=== PATIENT | female | born 1960 | race Caucasian/White ===

== ENCOUNTER 2018-01-09 23:36 | Emergency (ER) | payer OTHER ==
[~2018-01-09] VITALS: Ht 175.3 cm; Wt 53.5 kg
[~2018-01-09 23:36] MED LIST: ADVAIR HFA 230-12 GM; ASPIRIN81 M4 PO; AZITHROMYCIN500 M3 PO; COMBIGAN EYE DRO5 ML OS; KEPPRA750 M1 PO; LEVOTHYROXINE100 MC1 PO; METOPROLOL SUC100 M2 PO; PREDNISONE10 M2 PO; SPIRIVA RESPIMAT4 GM; TEGRETOL XR200 M1 PO; VASOTEC10 MG PO; VESICARE10 MG PO; VESICARE5 M1 PO; VITAMIN D2000 UNIT PO
--- NOTE | 2018-01-10 00:33 | ED CRITICAL CARE ---
History of Present Illness General Chief Complaint: Chest Pain Stated Complaint: "CHEST PAIN X20 MINS AGO, DIZZINESS" Source: patient, family, old records Exam Limitations: no limitations Vital Signs & Intake/Output Vital Signs & Intake/Output Vital Signs Date Time Temp Pulse Resp B/P B/P Pulse O2 O2 Flow FiO2 Mean Ox Delivery Rate 01/10 0046 93 01/09 2354 97 Room Air 01/09 2343 96.2 66 18 182/72 96 Room Air ED Intake and Output 01/10 0000 01/09 1200 Intake Total Output Total Balance Patient 118 lb Weight Weight Reported by Patient Measurement Method Allergies Coded Allergies: codeine (Intermediate, "LOOPY" 01/09/18) Reconcile Medications Aspirin (Aspirin*) 81 MG TAB.CHEW 1 TAB PO DAILY Heart (Reported) Azithromycin 500 MG TABLET 1 TAB PO DAILY bronchitis Brimonidine Tartrate/Timolol (Combigan Eye Drops) 0.2 %-0.5 % DROPS 1 DROP OS DAILY Eye health (Reported) Carbamazepine (Tegretol XR) 200 MG TAB.ER.12H 1 TAB PO TID SEIZURES (Reported ) Cholecalciferol (Vitamin D3) (Vitamin D) 2,000 UNIT CAPSULE 1 CAP PO DAILY Supplement (Reported) Enalapril Maleate (Vasotec) 10 MG TABLET 1.5 TAB PO DAILY Blood pressure ( Reported) Fluticasone Propionate/Salme (Advair Hfa 230-21 Mcg Inhaler) 230 MCG-21 MCG/ ACTUATION HFA.AER.AD COPD (Reported) Levetiracetam (Keppra) 750 MG TABLET 1 TAB PO BID SEIZURES (Reported) Levothyroxine Sodium 100 MCG TABLET 1 TAB PO DAILY THYROID HEALTH (Reported) Metoprolol Succinate 100 MG TAB.ER.24H 1 TAB PO DAILY HIGH BLOOD PRESSURE ( Reported) Prednisone 10 MG TABLET 1 TAB PO AD TAPER TAKE 4 TABS 11/08- TAKE 3 TABS 11/10-24 TAKE 2 TABS 11/12-26 TAKE 1 TAB 11/15-28 THEN STOP Solifenacin Succinate (Vesicare) 5 MG TABLET 1 TAB PO DAILY Bladder health ( Reported) Tiotropium [place] (Spiriva Respimat) 2.5 MCG/ACTUATION MIST.INHAL COPD ( Reported) Core Measure Meds Pre-Hospital aspirin Triage Note: PT FROM HOME C/O CP IN MIDDLE OF CHEST THAT "CRAWLED" UP THE LEFT SHOULDER/NECK 30 MINS PRIOR TO ARRIVAL. PT STATES "ANEURYSM THAT IS BEING MONITORED IN MY LEFT CHEST" PT STATES INTERMITTENT PAIN THAT DOES NOT RADIATE ANYWHERE FURTHER. PT DENIES N/V/D, BILATERAL ARM NUMBNESS/TINGLING, BACK OR JAW PAIN, OR SOB. Triage Nurses Notes Reviewed? yes Past History Travel History Traveled to [place] past 21 day Yes Medical History Neurological: seizure Cardiovascular: hypertension, MARFANS COPD History of MRSA: No History of VRE: No History of CDIFF: No Tetanus Vaccine: 04/05/12 Surgical History Surgical History: non-contributory Psychosocial History Who do you live with Family Services at Home None What is your primary language Algerian Tobacco Use: Quit >30 days ago Review of Systems Review of Systems Constitutional: Reports: no symptoms. Eyes: Reports: no symptoms. Ears, Nose, Throat, Mouth: Reports: no symptoms. Respiratory: Reports: no symptoms. Gastrointestinal/Abdominal: Reports: no symptoms. Genitourinary: Reports: no symptoms. Musculoskeletal: Reports: no symptoms. Skin: Reports: no symptoms. Neurological/Psychological: Reports: no symptoms. All Other Systems: Reviewed and Negative Progress Plan of Care: Orders Procedure Date/time Status Add-on Test (ER Only) 01/10 0033 Active MAGNESIUM 01/10 0003 Active B-TYPE NATRIURETIC PEP (BNP) 01/10 0003 Active TROPONIN LEVEL 01/10 0001 Active COMPREHENSIVE METABOLIC PANEL 01/10 0001 Active CBC WITHOUT DIFFERENTIAL 01/10 0001 Complete EKG 01/09 2338 Active Laboratory Tests 01/10/18 0003: Sodium Pending, Potassium Pending, Chloride Pending, Carbon Dioxide Pending, Anion Gap Pending, BUN Pending, Creatinine Pending, BUN/Creatinine Ratio Pending , Glucose Pending, Calcium Pending, Magnesium Pending, Total Bilirubin Pending, AST Pending, ALT Pending, Alkaline Phosphatase Pending, Troponin I Pending, Pro- B-Natriuretic Pept Pending, Total Protein Pending, Albumin Pending, Globulin Pending, Albumin/Globulin Ratio Pending, CBC w Diff NO MAN DIFF REQ, RBC 3.70 L , MCV 89.0, MCH 29.6, MCHC 33.3, RDW 13.7, MPV 8.7, Gran % 42.8, Lymphocytes % 32.1, Monocytes % 14.1 H, Eosinophils % 8.9 H, Basophils % 2.1 H, Absolute Granulocytes 3.4, Absolute Lymphocytes 2.6, Absolute Monocytes 1.1 H, Absolute Eosinophils 0.7, Absolute Basophils 0.2 Departure Departure Condition: Stable Referrals: Lambert Davies DO (PCP/Family) Departure Forms: Customer Survey General Discharge Information
[2018-01-10 00:35] LABS: ABSOLUTE BASOPHIL COUNT 0.2 /CUMM (0.0-0.2); ABSOLUTE EOSINOPHIL COUNT 0.7 /CUMM (0.0-0.7); ABSOLUTE GRANULOCYTE CT 3.4 /CUMM (1.4-6.5); ABSOLUTE LYMPH COUNT 2.6 /CUMM (1.2-3.4); ABSOLUTE MONOCYTE COUNT 1.1 /CUMM (0.10-0.60); BASOPHIL % 2.1 % (0.0-2.0); EOSINOPHIL % 8.9 % (0-5); GRANULOCYTE % 42.8 % (42.2-75.2); HEMATOCRIT 32.9 % (37-47); MEAN CORPUSCULAR HGB 29.6 PG (27.0-31.0); MEAN CORPUSCULAR HGB CONC 33.3 G/DL (33.0-37.0); MEAN PLATELET VOLUME 8.7 FL (7.4-10.4); PLATELET COUNT 269 /CUMM (130-400); RBC DISTRIBUTION WIDTH 13.7 % (11.5-14.5)
--- NOTE | 2018-01-10 00:50 | RADIOLOGY REPORT ---
EXAMINATION: XR CHEST CLINICAL INFORMATION: Chest pain and shortness of breath COMPARISON: 11/06/2017 TECHNIQUE: 2 views of the chest were obtained. FINDINGS: The lungs are hyperexpanded. Median sternotomy wires are present. Surgical clips overlie the mediastinum. There is no consolidation or edema. No definite pleural effusion. No pneumothorax. The cardiomediastinal silhouette is unchanged, with a calcified aorta. Mild degenerative changes of the spine. IMPRESSION: Hyperexpanded lungs with no acute findings.
--- NOTE | 2018-01-10 01:08 | ED CARDIAC/CP/PALPITATIONS ---
History of Present Illness General Chief Complaint: Chest Pain Stated Complaint: "CHEST PAIN X20 MINS AGO, DIZZINESS" Source: patient, family, old records Exam Limitations: no limitations Vital Signs & Intake/Output Vital Signs & Intake/Output Vital Signs Date Time Temp Pulse Resp B/P B/P Pulse O2 O2 Flow FiO2 Mean Ox Delivery Rate 01/10 0243 57 20 129/59 95 Room Air 01/10 0046 93 01/09 2354 97 Room Air 01/09 2343 96.2 66 18 182/72 96 Room Air ED Intake and Output 01/10 0000 01/09 1200 Intake Total Output Total Balance Patient 118 lb Weight Weight Reported by Patient Measurement Method Allergies Coded Allergies: codeine (Intermediate, "LOOPY" 01/09/18) Reconcile Medications Aspirin (Aspirin*) 81 MG TAB.CHEW 1 TAB PO DAILY Heart (Reported) Azithromycin 500 MG TABLET 1 TAB PO DAILY bronchitis Brimonidine Tartrate/Timolol (Combigan Eye Drops) 0.2 %-0.5 % DROPS 1 DROP OS DAILY Eye health (Reported) Carbamazepine (Tegretol XR) 200 MG TAB.ER.12H 1 TAB PO TID SEIZURES (Reported ) Cholecalciferol (Vitamin D3) (Vitamin D) 2,000 UNIT CAPSULE 1 CAP PO DAILY Supplement (Reported) Enalapril Maleate (Vasotec) 10 MG TABLET 1.5 TAB PO DAILY Blood pressure ( Reported) Fluticasone Propionate/Salme (Advair Hfa 230-21 Mcg Inhaler) 230 MCG-21 MCG/ ACTUATION HFA.AER.AD COPD (Reported) Levetiracetam (Keppra) 750 MG TABLET 1 TAB PO BID SEIZURES (Reported) Levothyroxine Sodium 100 MCG TABLET 1 TAB PO DAILY THYROID HEALTH (Reported) Metoprolol Succinate 100 MG TAB.ER.24H 1 TAB PO DAILY HIGH BLOOD PRESSURE ( Reported) Prednisone 10 MG TABLET 1 TAB PO AD TAPER TAKE 4 TABS 11/08- TAKE 3 TABS 11/10-24 TAKE 2 TABS 11/12-26 TAKE 1 TAB 11/15- THEN STOP Solifenacin Succinate (Vesicare) 5 MG TABLET 1 TAB PO DAILY Bladder health ( Reported) Tiotropium [place] (Spiriva Respimat) 2.5 MCG/ACTUATION MIST.INHAL COPD ( Reported) Core Measure Meds Pre-Hospital aspirin Triage Note: PT FROM HOME C/O CP IN MIDDLE OF CHEST THAT "CRAWLED" UP THE LEFT SHOULDER/NECK 30 MINS PRIOR TO ARRIVAL. PT STATES "ANEURYSM THAT IS BEING MONITORED IN MY LEFT CHEST" PT STATES INTERMITTENT PAIN THAT DOES NOT RADIATE ANYWHERE FURTHER. PT DENIES N/V/D, BILATERAL ARM NUMBNESS/TINGLING, BACK OR JAW PAIN, OR SOB. Triage Nurses Notes Reviewed? yes Onset: Just prior to arrival Duration: minute(s):, constant, continues in ED Timing: recent history Quality/Severity: moderate, sharp Location: substernal Radiation: no radiation Activities at Onset: rest Prior Chest Pain/Card Workup: non-cardiac Modifying Factors: Worsens With: movement, palpation. Nitro Today/Relief: no nitro taken today Aspirin Today: no aspirin today LMP (ages 10-50): post menopausal : No Patient currently breastfeeds: No HPI: Prior to admission before going to bed patient complains of left-sided chest pain described as sharp moderate to severe constant nonradiating. She denies fever chills nausea vomiting diarrhea abdominal pain shortness of breath cough dysuria rash bleeding. Past History Travel History Traveled to [place] past 21 day Yes Medical History Any Pertinent Medical History? see below for history Neurological: seizure Cardiovascular: hypertension, MARFANS COPD History of MRSA: No History of VRE: No History of CDIFF: No Tetanus Vaccine: 04/05/12 Surgical History Surgical History: non-contributory Psychosocial History Who do you live with Family Services at Home None What is your primary language Uruguayan Tobacco Use: Quit >30 days ago Family History Hx Contributory? No Review of Systems Review of Systems Constitutional: Reports: no symptoms. EENTM: Reports: no symptoms. Respiratory: Reports: no symptoms. Cardiovascular: Reports: see HPI, chest pain. GI: Reports: no symptoms. Genitourinary: Reports: no symptoms. Musculoskeletal: Reports: no symptoms. Skin: Reports: no symptoms. Neurological/Psychological: Reports: no symptoms. Hematologic/Endocrine: Reports: no symptoms. Immunologic/Allergic: Reports: no symptoms. All Other Systems: Reviewed and Negative Physical Exam Physical Exam General Appearance: well developed/nourished, alert, awake, anxious, thin Head: atraumatic, normal appearance Eyes: Bilateral: normal appearance, PERRL, EOMI. Ears, Nose, Throat: normal pharynx, normal ENT inspection, hearing grossly normal, moist mucus membranes Neck: normal inspection, supple, full range of motion, no midline tenderness Respiratory: normal breath sounds, no respiratory distress, quiet respiration, decreased breath sounds Cardiovascular: regular rate/rhythm, normal peripheral pulses, norml femoral pulses equa Peripheral Pulses: 4+ carotid (R), 4+ carotid (L) Gastrointestinal: normal bowel sounds, soft, non-tender, no organomegaly Back: normal inspection, normal range of motion, no vertebral tenderness Extremities: normal inspection, normal capillary refill, normal range of motion, no edema Neurologic/Psych: no motor/sensory deficits, awake, alert, oriented x 3, normal gait, normal mood/affect, inbound customer service agent II-XII nml as tested Reflexes: 2+: bicep (R), bicep (L). Skin: intact, normal color, warm/dry Lymphatic: no anterior cervical pedro Core Measures ACS in differential dx? Yes No ASA d/t Pharmacological CI CVA/TIA Diagnosis No Sepsis Present: No Sepsis Focused Exam Completed? No Progress Differential Diagnosis: CHF/pulm edema, costochondritis, hyperkalemia, pneumonia Plan of Care: Orders Procedure Date/time Status TROPONIN LEVEL 01/10 0321 Complete Add-on Test (ER Only) 01/10 0033 Active MAGNESIUM 01/10 0003 Complete B-TYPE NATRIURETIC PEP (BNP) 01/10 0003 Complete TROPONIN LEVEL 01/10 0001 Complete COMPREHENSIVE METABOLIC PANEL 01/10 0001 Complete CBC WITHOUT DIFFERENTIAL 01/10 0001 Complete EKG 01/09 2338 Active Current Medications Sig/Demetrio Start time Last Medication Dose Stop Time Status Admin Magnesium Sulfate 1 GM ONCE ONE 01/10 0330 AC 01/10 (Mag Sulfate in D5) 01/10 0729 0339 Dextrose/Water 100 ML (D5W) Laboratory Tests 01/10/18 0328: Troponin I < 0.01 01/10/18 0003: Anion Gap 10, Estimated GFR > 60, BUN/Creatinine Ratio 23.3, Glucose 79, Calcium 10.0, Magnesium 1.2 L, Total Bilirubin 0.2, AST 44 H, ALT 30, Alkaline Phosphatase 58, Troponin I < 0.01, [id number] Pept 925 H, Total Protein 7.3, Albumin 4.2, Globulin 3.1, Albumin/Globulin Ratio 1.4, CBC w Diff NO MAN DIFF REQ, RBC 3.70 L, MCV 89.0, MCH 29.6, MCHC 33.3, RDW 13.7, MPV 8.7, Gran % 42.8, Lymphocytes % 32.1, Monocytes % 14.1 H, Eosinophils % 8.9 H, Basophils % 2.1 H, Absolute Granulocytes 3.4, Absolute Lymphocytes 2.6, Absolute Monocytes 1.1 H, Absolute Eosinophils 0.7, Absolute Basophils 0.2 Diagnostic Imaging: Viewed by Me: Radiology Read. Discussed w/RAD: Radiology Read. CXR Impression: no acute abnormality, no infiltrates Initial ED EKG: normal axis, normal intervals, normal p-waves, normal QRS complex, normal sinus rhythm, no ST T wave changes Prior EKG: unchanged Rhythm Strip: normal sinus rhythm Departure Departure Time of Disposition: 439 Disposition: HOME OR SELF CARE Condition: Stable Clinical Impression Primary Impression: Chest pain syndrome Referrals: Lambert Davies DO (PCP/Family) Departure Forms: Customer Survey General Discharge Information Critical Care Note Critical Care Note Critical Care Time: non-applicable
[2018-01-10 05:01] VITALS: BP 127/46
== END 2018-01-10 05:08 ==
LOC: ERH 23:36
PROVIDERS: Emergency Medicine
DX: R07.9 Chest pain, unspecified (principal)
CPT/HCPCS: 71046; 93005; 93010; 96374; 96375; J0131